=== PATIENT | male | born 1930 | race Caucasian/White ===

== ENCOUNTER → 2017-05-15 | Outpatient (CLI) | payer OTHER ==
[~2017-05-15] MED LIST: ALLOPURINOL 30300 M1; ASPIRIN EC81 M1; CALCIUM OYSTER500 MG; CARVEDILOL25 MG; COUMADIN 2 MG TA2 M1; CRESTOR20 MG; FIBER1 GM; FISHOIL; LISINOPRIL20 MG; VITAMIN D400 UNI1
== END ==
LOC: HYPER 07:06
DX: L89.312 Pressure ulcer of right buttock, stage 2 (principal); I48.1 Persistent atrial fibrillation; E78.00 Pure hypercholesterolemia, unspecified; G47.33 Obstructive sleep apnea (adult) (pediatric); M10.9 Gout, unspecified; I10 Essential (primary) hypertension; I25.10 Atherosclerotic heart disease of native coronary artery without angina pectoris; K21.9 Gastro-esophageal reflux disease without esophagitis; J44.9 Chronic obstructive pulmonary disease, unspecified; Z87.891 Personal history of nicotine dependence; Z87.01 Personal history of pneumonia (recurrent); Z86.718 Personal history of other venous thrombosis and embolism; Z86.19 Personal history of other infectious and parasitic diseases

== ENCOUNTER → 2017-05-24 | Outpatient (CLI) | payer OTHER | LOC: HYPER 07:12 | DX: L02.31 Cutaneous abscess of buttock (principal); I48.1 Persistent atrial fibrillation; E78.00 Pure hypercholesterolemia, unspecified; G47.33 Obstructive sleep apnea (adult) (pediatric); M10.9 Gout, unspecified; I10 Essential (primary) hypertension; I25.10 Atherosclerotic heart disease of native coronary artery without angina pectoris; K21.9 Gastro-esophageal reflux disease without esophagitis; J44.9 Chronic obstructive pulmonary disease, unspecified; Z87.891 Personal history of nicotine dependence; Z86.19 Personal history of other infectious and parasitic diseases; Z87.01 Personal history of pneumonia (recurrent); Z86.718 Personal history of other venous thrombosis and embolism ==

== ENCOUNTER 2019-06-28 21:16 | Inpatient (IN) | payer OTHER ==
[~2019-06-28] VITALS: Ht 152.4 cm; Wt 57.5 kg
[2019-06-28 21:16] VITALS: BP 149/95
[2019-06-28 21:39] LABS: ABSOLUTE NEUTROPHILS 10.5 thou/uL (1.4-8.2); BASOPHILS 0.4 % (0.0-2.0); EOSINOPHILS 0.4 % (0.0-3.0); HEMOGLOBIN 14.1 gm/dL (14.0-18.0); LYMPHOCYTES 6.5 % (24.0-44.0); MCH 32.2 pg (26.0-34.0); MCHC 32.1 g/dL (28.0-37.0); MCV 100.2 fL (80.0-100.0); MONOCYTES 8.1 % (1.0-8.0); PLATELET COUNT 170 thou/uL (150-400); POLYS 84.6 % (36.0-66.0); RBC 4.39 mil/uL (4.50-6.00); RDW 14.6 % (10.5-14.5); WBC 12.5 thou/uL (4.0-11.0)
[2019-06-28 21:44] LABS: CALCIUM 9.5 mg/dL (8.5-10.1); CREATININE 1.4 mg/dL (0.7-1.3); POTASSIUM 3.8 mmol/L (3.5-5.1)
[2019-06-28 21:49] LABS: ALBUMIN 3.1 g/dL (3.4-5.0); TOTAL BILIRUBIN 0.7 mg/dL (<0.1-1.0); TOTAL PROTEIN 7.3 g/dL (6.4-8.2)
[2019-06-28 21:51] LABS: APTT 41.8 Seconds (24.5-32.8); PROTIME 54.6 Seconds (9.3-11.4)
[2019-06-28 21:53] LABS: INR 5.3
[2019-06-28] MEDS ORDERED: XALATAN2.5 M1 OPHTHALMIC (22:14)
[2019-06-28 23:24] VITALS: BP 149/95
[2019-06-29] VITALS (13 sets, daily range): BP systolic 97–145; BP diastolic 57–99
[2019-06-29 01:35] LABS: HEMATOCRIT 41.3 % (42.0-52.0)
[2019-06-29 04:11] LABS: INR 2.2; PROTIME 23.3 Seconds (9.3-11.4)
[2019-06-29 06:51] LABS: CALCIUM 9.2 mg/dL (8.5-10.1); CREATININE 1.1 mg/dL (0.7-1.3); POTASSIUM 3.2 mmol/L (3.5-5.1)
--- NOTE | 2019-06-29 06:57 | NUR ---
PT WAS AN ER ADMIT. PT IS ADMITTED WITH ACTIVE RECTAL BLEEDING AND IS ASYMPOTMATIC. SPOUSE WAS AT BEDSIDE. PT IS ALERT BUT CONFUSED AND FORGETFUL. NO SIGN OF DISTRESS NOTED IN PT. ADMISSION ASSESSMENT AND EDUCATION COMPLETED VIA SPOUSE, PATIENT CONTINUES TO HAVE BRIGHT RED BLOOD WITH CLOTS PRESENT. H&H STABLE. PATIENT IS NPO FOR A COLONOSCOPY THIS AM. VITAL SIGNS STABLE. DENIES ANY PAIN, DENIES ANY FURTHER NEEDS AT THIS TIME
--- NOTE | 2019-06-29 11:23 | NUR ---
transfered to ICU close monitoring pt is very anxious cardiac history and issues going on. Reasured pt he will be taken care of in the ICU. And any cardiac pain he is to inoform the nurse. denies any chest pain currently family at bedside for support at this time. remains on nitro and heparin drip at this time for manangement. Discuss plan of care with pt at this time per nursing. Will continue to assess and monitor per nursing
[2019-06-29 15:41] LABS: URINE BILIRUBIN NEGATIVE (Negative); URINE BLOOD 3+ (Negative); URINE CLARITY CLEAR; URINE COLOR YELLOW; URINE GLUCOSE-RANDOM* NEGATIVE (Negative); URINE KETONES NEGATIVE (Negative); URINE LEUKOCYTES-REFLEX TRACE (Negative); URINE NITRITE-REFLEX NEGATIVE (Negative); URINE PROTEIN (DIPSTICK) NEGATIVE (Negative); URINE SPECIFIC GRAVITY 1.025 (1.005-1.035); URINE UROBILINOGEN 0.2 E.U./dl (0.2-1.0)
[2019-06-29 15:53] LABS: BACTERIA-REFLEX 1-9 Few /HPF (None Seen); CRYSTALS None Seen /LPF (None Seen); HYALINE CASTS 4-10 Moderate /LPF (None Seen); MUCUS >6 Heavy strn/LPF (None Seen); SQUAMOUS 0-3 Few /LPF (0-3); URINE RBC >20 Many /HPF (0-2); URINE WBC-REFLEX 6-15 Few /HPF (0-5)
[2019-06-29 16:49] LABS: HEMATOCRIT 32.2 % (42.0-52.0)
[2019-06-29 16:50] LABS: HEMOGLOBIN 10.4 gm/dL (14.0-18.0)
--- NOTE | 2019-06-29 20:00 | NUR ---
PT HAD SECOND MAROON BM [id number]. BM HAD BLOOD CLOTS. DR. RIZO CALLED AND NOTIFIED ABOUT THE BM. HE WANTED HH CHECKED NOW AND AT 0400 IN AM. PT PICKING ON THINGS. ORDER FOR MELATONIN GIVEN.
[2019-06-29 21:03] LABS: HEMATOCRIT 31.8 % (42.0-52.0); HEMOGLOBIN 10.1 gm/dL (14.0-18.0)
[2019-06-30] VITALS (14 sets, daily range): BP systolic 103–165; BP diastolic 58–100
--- NOTE | 2019-06-30 00:12 | NUR ---
PT INCREASINGLY AGITATED AND CONFUSED. PT REMOVED HIS IV BY SELF. PT TOOK HIS GOWN, EKG LEADS AND BP CUFF OFF. PT WAS GIVEN 2 GM MELATONIN TO HELP SLEEP BUT DID NOT HELP PT. ORDER FOR BILATERAL MITTEN WAS GIVEN. PT MORE AGITATED AND DEMANDING TO TAKE IT OFF. PT ONLY ORIENTED TO SELF WHEN ASKED WHERE HE WAS. PT DELIRIOUS AND SEEING HIS . ORDER FOR BILATERAL SOFT WRISTS RESTRAINT GIVEN.
--- NOTE | 2019-06-30 00:20 | NUR ---
PT REMOVED HIS IV BY SELF. PT TOOK HIS GOWN, EKG PATCH AND BP CUFF OFF. PT REPEATEDLY TRYING TO GET OUT OF BED. PT ONLY ORIENTED TO SELF AND WHEN ASKED WHERE HE WAS. PT ANSWERED HOME. PT DELIRIOUS AND SEEING HIS IN THE ROOM. PT INCREASINGLY AGITATED. PT GIVEN 2 MG MELATONIN GIVEN. IT DID NOT HELP PT. PT WAS PUT IN MITTEN. PT DEMANDING TO GET THE MITTEN OFF. ORDER FOR BILATERAL SOFT WRIST RESTRAINT AND HALDOL GIVEN.
[2019-06-30 04:40] LABS: ABSOLUTE NEUTROPHILS 8.5 thou/uL (1.4-8.2); BASOPHILS 0.3 % (0.0-2.0); EOSINOPHILS 0.6 % (0.0-3.0); HEMATOCRIT 26.9 % (42.0-52.0); HEMOGLOBIN 8.7 gm/dL (14.0-18.0); LYMPHOCYTES 11.5 % (24.0-44.0); MCH 32.6 pg (26.0-34.0); MCHC 32.5 g/dL (28.0-37.0); MCV 100.3 fL (80.0-100.0); MONOCYTES 6.4 % (1.0-8.0); PLATELET COUNT 122 thou/uL (150-400); POLYS 81.2 % (36.0-66.0); RBC 2.69 mil/uL (4.50-6.00); RDW 14.7 % (10.5-14.5); WBC 10.4 thou/uL (4.0-11.0)
[2019-06-30 04:55] LABS: INR 1.5; PROTIME 15.3 Seconds (9.3-11.4)
[2019-06-30 05:05] LABS: ALBUMIN 2.3 g/dL (3.4-5.0); CALCIUM 8.3 mg/dL (8.5-10.1); MAGNESIUM 1.9 mg/dL (1.8-2.4); PHOSPHORUS 2.7 mg/dL (2.5-4.9); POTASSIUM 3.3 mmol/L (3.5-5.1); TOTAL BILIRUBIN 0.6 mg/dL (<0.1-1.0); TOTAL PROTEIN 5.2 g/dL (6.4-8.2)
--- NOTE | 2019-06-30 11:58 | NUR ---
patient admits with rectal bleeding. he admits from home. he has hx of dementia and currently in restraints. Sp with at bedside. Patient was doing well until the past week. She reports 8 steps in home to bedroom. Patient ambulated without a walker but she was able to assist. She reports plan for patient to move to [facility] today to memory care assisted living. She reports she can no longer take care of him at home. She reports his confusion progressed in last week were he was up most of night. He would bang on wall looking for her and needing increase care. Patient has been at [facility] in past. DIscussed with likely needing ltc placement. Also discussed hospice and reviewed inpatient hospice house if they decide no more aggresive tx. At this time plan flexsig and tx. Patient in restraints not a candidate for skilled. 2 supportive children, dtr RN in [place] and son lives in [place]. [facility] following.
[2019-06-30 17:07] LABS: HEMATOCRIT 26.5 % (42.0-52.0); HEMOGLOBIN 8.6 gm/dL (14.0-18.0)
[2019-07-01 05:20] VITALS: BP 99/61
[2019-07-01 05:24] LABS: HEMATOCRIT 23.6 % (42.0-52.0); HEMOGLOBIN 7.6 gm/dL (14.0-18.0); RBC 2.36 mil/uL (4.50-6.00); RDW 14.4 % (10.5-14.5); WBC 12.8 thou/uL (4.0-11.0)
--- NOTE | 2019-07-01 06:09 | NUR ---
PT ALERT TO SELF WITH CONGRUENT, APPROPRIATE RESPONSES TO PROMPTS. PT IS MAX ASSIST WHILE ON BED REST. PT NOTED TO HAVE VOLUNTARY, UNCOORDINATED MOVEMENTS OF ALL EXTREMITIES. PT REPOSITIONED Q2HR. PT HAS NO REPORTS OR OBSERVATIONS OF PAIN, FLACC OF 0. BILATERAL SOFT WRIST RESTRAINTS CONTINUE TO BE INDICATED WRIST RESTRAINTS CONTINUE TO BE INDICATED PT CONTINUES TO ATTEMPT TO PULL OUT TUBING. TAP WATER ENEMAS ADMINISTERED X 2 ORDERED, PROCEDURE TOLERATED WELL. PT MOUTH NOTED DRY, MOUTH CARE PROVIDED. PT REMAINS NPO FOR PROCEDURE. ENCOURAGED TO NOTIFY STAFF FOR ALL NEEDS. BED ALARMS ON, BED IN LOWEST POSITION, CALL LIGHT WITHIN REACH. WILL CONTINUE TO MONITOR.
[2019-07-01 08:00] VITALS: BP 113/54
[2019-07-01] MEDS ORDERED: CARDIZEM30 MG PO (10:11)
--- NOTE | 2019-07-01 16:02 | NUR ---
SPOUSE WAS AGREEABLE WITH REFERRAL BEING SENT TO HOSPICE HOUSE FOR REVIEW FOR POSSIBLE ADMISSION. REFERRAL SENT. NURSE MAK TO DO ON SITE EVAL. SHE INDICATED THAT AT THIS TIME PT DOESN'T MEET CRITERIA FOR ADMISSION. SHE INDICATED THAT PT WOULD NEED TO BE OUT OF PHYSICAL RESTRAINTS FOR 24HRS PRIOR TO ADMISSION. SHE INDICATED THAT SHE WOULD CALL REPORT INTO HOUSE AND THAT IT MIGHT BE APPROPRIATE FOR THEM TO CHECK ON PT DAILY TO SEE AT TO HOW HE PROGRESSES. SPOUSE IS AWARE. CM SPOKE WITH NURSE TO SEE IF THEY MIGHT BE ABLE TO TAKE OFF RESTRAINTS. CM TO FOLLOW INDICATED WITH DC PLANNING.
--- NOTE | 2019-07-01 16:40 | NUR ---
RECEIVED CALL FROM PT'S DTR EFE VERA RN THAT LIVES IN [place] REQUESTING THE DR GIVE HER A CALL TO DISCUSS HIS CARE AND SHE DOES NOT WANT TO CONSIDER HOSPICE AT THIS TIME. SHE WANTS HIM TO RECEIVE NUTRITION LIKE TPN OR SOMETHING. FAMILY IS FLYING IN ON SUNDAY. DTR SAYS SHE JUST S/W HER DAD ON SUN IN THE ICU & NEEDS TO SEE HIM FIRST BEFORE CONSIDERING HOSPICE. EFE [phone].
[2019-07-01 17:01] LABS: HEMATOCRIT 23.8 % (42.0-52.0); HEMOGLOBIN 7.7 gm/dL (14.0-18.0)
[2019-07-01 17:08] VITALS: BP 111/50
--- NOTE | 2019-07-01 19:49 | NUR ---
ASSUMED CARE OF PATIENT AT 0715, PATIENT EYES REMAINED CLOSED, BUT RESPONDS MINIMALLY. PATIENT WAS NPO THIS AM, BUT DIET ORDER IN FROM DR ANG FOR BREAKFAST TARY. PATIENT DIDN'T EAT BREAKFAST TRAY. ONLY HAD 10% OF LUNCH AND 10% OF DINNER, SUPPLEMENT ONLY 10% NEW ORDER FOR FENTANYLL PATCH 12MCG APPLIED TO RIGHT CHEST AREA. PATIENT IN RESTRAINTS MICKIE. SOFT WRIST. Q2HR CHECK IN COMPUTER, SKIN ASSESSED Q2HRS, PATIENT REPOSITIONED. AT BEDSIDE TODAY. ORDER IN PER DR TROY FOR HOSPICE EVAL. HOSPICE EVAL DONE, PATIENT HAS BE OUT OF RESTRAINTS X 24HRS. SPOKE WITH DR TROY IN REGARD TO TPN PER FAMILY REQUEST, HE STATES SODIUM LEVEL NOT GOOD, INCREASE IV FLUIDS TO 100CC/HR. IV TO LEFT FOREARM WITH D5NS AT 80CC INCREASED TO 100CC/HR AT END OF THE SHIFT. WILL CONTINUE TO MONITOR.
[2019-07-01 21:51] VITALS: BP 125/56
--- NOTE | 2019-07-02 03:15 | NUR ---
Assumed pt care at 1900. Pt alert to self,confused but able to make needs known. Pt fidgiting with vizcaino causing some bleeding even with the restraints in place. Restraints reapplied. Pt yelling out loud as well,medicated with Haldol with relief reported at this time. Vizcaino patent draining dark yellow urine. Pt had a medium soft BM earlier this shift,pericare done and moisture barrier applied. IV reinserted on LUE as the other one was infiltrated due to the restraints being moved a lot by patient. Fall precautions in place. Frequent monitoring done on pt. Pts daughter called at HS, updated on pt and all questions answered stated she plans to be here Sunday and would like pt to be here until then CM aware. Will continue to monitor pt.
[2019-07-02 05:35] LABS: HEMATOCRIT 22.7 % (42.0-52.0); HEMOGLOBIN 7.5 gm/dL (14.0-18.0)
[2019-07-02 06:08] VITALS: BP 112/47
[2019-07-02 08:30] VITALS: BP 125/53
[2019-07-02 09:33] LABS: CALCIUM 7.8 mg/dL (8.5-10.1); CREATININE 0.8 mg/dL (0.7-1.3); POTASSIUM 3.4 mmol/L (3.5-5.1)
--- NOTE | 2019-07-02 15:48 | NUR ---
PT SLEEPY TODAY UNABLE TO EAT THIS AM W/O CHOKING. WHEN RESTRAINT WERE REMOVED FOR BREAKFAST PT STARTED PULLING AT GOINS. PT WAS PLACED ON PPN, AND MADE NPO. SPOUSE IS AT THE BEDSIDE AT THIS TIME. WILL CONT POC.
[2019-07-02 17:07] LABS: HEMATOCRIT 24.8 % (42.0-52.0)
[2019-07-02 17:55] VITALS: BP 108/54
[2019-07-02 19:47] VITALS: BP 139/78
--- NOTE | 2019-07-03 05:02 | NUR ---
Assumed pt care at 1900. Alert to self with confusion,able to answer yes or No questions. Denied pain on assessment. VSS. Thompson in place with adequate output dark yellow urine,incontinent of BM. Restraints in place,pt continues to attempt pulling medical equipment when released. Resting quietly at this time,no distress noted oxygen on at 2L/NC. Fall precautions in place,will continue to monitor pt.
[2019-07-03 05:09] VITALS: BP 136/75
[2019-07-03 08:20] VITALS: BP 131/71
--- NOTE | 2019-07-03 08:21 | NUR ---
Recommend discontinue D5 IVF and increase clinimix PPN to 100ml/hr with 250ml 20% lipids MWF
[2019-07-03 16:28] VITALS: BP 115/60
--- NOTE | 2019-07-03 16:41 | NUR ---
PT A&O TO SELF. IV INTACT IN R UA INFUSING PPN/CONT. FLUIDS W//O COMPS. PT IS MORE ARROUSABLE TODAY, LESS LETHARGIC. SOFT WRIST RESTRAINTS REMAIN IN PLACE DUE TO PT PULLING AT LINES AND TUBES. PT DID STAND UP WITH PT TODAY. REMAIN NPO. SPOUSE AT THE BEDSIDE OFF AND ON THRUOGHOUT THE DAY.WILL CONT. POC.
[2019-07-03 17:31] LABS: HEMATOCRIT 26.1 % (42.0-52.0); HEMOGLOBIN 8.5 gm/dL (14.0-18.0)
--- NOTE | 2019-07-03 18:35 | NUR ---
GOINS CATH REMOVED WITH 10ML STREILE WATER BALOON. PT TOLERATED WELL.
[2019-07-03 20:30] VITALS: BP 102/64
--- NOTE | 2019-07-04 04:00 | NUR ---
ASSESSMENT COMPLETED. PT IS ALERT TO SELF.ANSWERS SIMPLE QUESTIONS. Q2HR TURN PROVIDED. INCONTINENT OF BLADDER SEVERAL TIMES. ON /. DENIES PAIN. CONTINUES TO BE ON MICKIE WRIST RESTRAINTS WITH CURRENT DOCTORS ORDERS IN COMPUTER.PT IS NPO.IVF AND PPN INFUSING. AFEBRILE.HAD A LARGE DARK BROWN BM. NO FURTHER CONCERNS AT THIS TIME.
[2019-07-04 05:05] VITALS: BP 102/64
[2019-07-04 05:21] LABS: HEMATOCRIT 22.8 % (42.0-52.0); HEMOGLOBIN 7.6 gm/dL (14.0-18.0); MCH 32.9 pg (26.0-34.0); MCHC 33.5 g/dL (28.0-37.0); MCV 98.2 fL (80.0-100.0); RBC 2.32 mil/uL (4.50-6.00); RDW 14.2 % (10.5-14.5)
[2019-07-04 05:34] LABS: ALBUMIN 1.9 g/dL (3.4-5.0); CREATININE 0.7 mg/dL (0.7-1.3); MAGNESIUM 1.7 mg/dL (1.8-2.4); POTASSIUM 3.2 mmol/L (3.5-5.1); TOTAL BILIRUBIN 0.4 mg/dL (<0.1-1.0); TOTAL PROTEIN 5.3 g/dL (6.4-8.2)
[2019-07-04 08:20] VITALS: BP 115/64
--- NOTE | 2019-07-04 10:07 | NUR ---
WOUND CARE FOLLOW UP; WE HAVE BEEN FOLLOWING THIS PATIENT RE; HIGH RISK STATUS. THE PATIENT IS DOING WELL. ALL PRESSURE AREAS ARE BEING OFFLOADED EFFECTIVELY. PRAFO BOOTS, WEDGES AND PILLOW AND A LOW AIRLOSS BED PUMP ARE BEING EMPLOYED. RECOMMEDNATION; CONTINUE TO FOLLOW THIS PATIENT THROUGH DISCHARGE. DISCUSSED WITH [facility]I
[2019-07-04 11:28] LABS: TSH 2.573 uIU/mL (0.358-3.740)
--- NOTE | 2019-07-04 12:24 | NUR ---
FAXED REFERRAL TO [facility] RECEIVED CONFIRMATION AND SPOKE WITH DIEGO IN ADM SHE WILL REVIEW. ANTICIPATE DC SUNDAY.
[2019-07-04 17:05] LABS: HEMATOCRIT 25.8 % (42.0-52.0); HEMOGLOBIN 8.5 gm/dL (14.0-18.0)
--- NOTE | 2019-07-04 19:49 | NUR ---
Assumed care of pt at 0700. Pt a&ox1. Non-violent restraints on. IVF and PPN infusing. Diet advanced to pureed, honey thick. Incontinent of b&b. Family at bedside. Appointment set with Dr. Calvetr at 0900 tomorrow (07/05).
[2019-07-04 21:10] VITALS: BP 136/77
[2019-07-05 03:10] VITALS: BP 130/68
[2019-07-05 05:24] LABS: ALBUMIN 2.2 g/dL (3.4-5.0); CALCIUM 8.3 mg/dL (8.5-10.1); CREATININE 0.7 mg/dL (0.7-1.3); MAGNESIUM 1.8 mg/dL (1.8-2.4); TOTAL BILIRUBIN 0.4 mg/dL (<0.1-1.0)
--- NOTE | 2019-07-05 05:51 | NUR ---
ASSUMED PT CARE 07/04/19 APPROX 191. PT IS ALERT TO SELF AND CONFUSED. DAUGHTER WAS VISITING PT IN ROOM FOR ABOUT AN HOUR AND A HALF. PT IS IN SOFT RESTRAINTS. I CALLED NURSE PRACTITIONER SPECIMEN TECHNICIAN TO RENEW THE ORDER FOR THE RESTRAINTS. GAVE PT BLOOD THINNER BUT HE REFUSED ORAL MEDICATION. PT STATES THAT HE IS NOT IN PAIN BUT DOES NOT FEEL GOOD. PT IS INCONTINENT BOWEL & BLADDER. PT TAKES OFF GOWN AND COVERS CONSTANTLY. DID TWO FULL BED CHANGES. WE PERFORMED IRIS CARE ON PT. RELEASED THE RESTRAINTS Q2 HRS. PT STILL TRIES TO PULL IV AND NASAL CANULA. PT CALLS OUT WIFES NAME. WILL CONTINUE TO MONITOR PT.
--- NOTE | 2019-07-05 06:28 | NUR ---
THIS NURSE AGREES WITH THE NOTE ON THIS PATIENT.
[2019-07-05 08:37] VITALS: BP 133/73
[2019-07-05 17:26] VITALS: BP 116/69
[2019-07-05 21:10] VITALS: BP 107/51
--- NOTE | 2019-07-05 21:20 | NUR ---
PATIENTIS ORIENTED TO SELF AND SPOUSE AND DAUGHTER AT BEDSIDE FOR MOST OF THE DAY. DR. TROY AT BEDSIDE THIS AM AND SPOKE WITH FAMILY ABOUT DC TO SNF TO CONTINUE TO GET STRONGER. POSSIBLY DC ON SUNDAY. SPEECH SIGN AT INDICATES THICKENED LIQUIDS AND CRUSH MEDS.
--- NOTE | 2019-07-06 03:00 | NUR ---
ASSUMED CARE OF PT @1900 PT ASSESSED AT START OF SHIFT A&0X1 WITH HX OF ALZHEIMERS. PT ON BEDREST TURNS SELF IN BED. PT INCONTINENT OF BOWEL AND BLADDER IRIS CARE GIVEN. TAKES MEDS CRUSHED WITH THICK LIQUID ASPIRATION PROTOCOL MAINTAINED. PT TAKEN OFF RESTRAINT DURING THE DAY. IV INTACT IN LFT UPPER ARM FLUIDS AND FEEDING D/C. PT O2 SAT STABLE ON ROOM AIR. FREQUENT ROUNDING DONE AND ROOM INFRONT OF NURSES STATION WILL CONT WITH POC TILL EOS.
[2019-07-06 04:30] VITALS: BP 127/56
[2019-07-06 08:13] VITALS: BP 137/71
--- NOTE | 2019-07-06 16:12 | NUR ---
Alert and oriented to self, kept talking to self; with family help, the patient finished 70% of breakfast and 40% of lunch. Daughter asked the staff to pass it on that the cough the patient had during eating was normal, not a sign of aspiriation.VSS, afebrile. family showed concern about the patient's s;eep quality.
[2019-07-06 16:19] VITALS: BP 145/74
[2019-07-07 03:35] VITALS: BP 114/70
[2019-07-07 03:46] LABS: HEMATOCRIT 25.7 % (42.0-52.0); HEMOGLOBIN 8.4 gm/dL (14.0-18.0); MCH 32.1 pg (26.0-34.0); MCHC 32.8 g/dL (28.0-37.0); MCV 97.9 fL (80.0-100.0); RBC 2.63 mil/uL (4.50-6.00); RDW 14.3 % (10.5-14.5); WBC 8.6 thou/uL (4.0-11.0)
--- NOTE | 2019-07-07 04:29 | NUR ---
PT ASSESSED AT START OF SHIFT ALERT TO SELF. MEDS CRUSHED AND GIVEN WITH THICKNED LIQUIDS. PT INCONTINET OF BOWEL AND BLADDER. SLEPT ALL THROUGH THE NIGHT. GIVEN PO THICK FLUID FRQ AND REPOSITIONED. HOURLY ROUNDING DONE AND WILL CONT WITH POC TILL EOS.
[2019-07-07 08:04] VITALS: BP 131/84
[2019-07-07] MEDS ORDERED: MIRALAX17 GM PO (08:51)
[2019-07-07] MEDS ORDERED: ASPIRIN325 PO (08:51)
[2019-07-07] MEDS ORDERED: LATANOPROST2.5 ML OPHTHALMIC (08:51)
[2019-07-07] MEDS ORDERED: REMERON15 MG PO (08:51)
--- NOTE | 2019-07-07 13:09 | NUR ---
WOUND CARE FOLLOW UP; ASSESSMENT COMPLETED. THE LOW AIR LOSS PUMP IS CONNECTED AND FUNTIONING THE PATIENT HAS NO S/S OF PRESSURE INJURY AT THIS TIME. THE PATIENTS ALBUMIN IS DOWN TO 2.2. I WILL CONTINUE TO FOLLOW THIS AT RISK PATIENT.
--- NOTE | 2019-07-07 13:57 | NUR ---
PT CARE ASSUMED 0700. PT SLEEPING MOST OF THE DAY. PT. EVALUATED FOR HOSPICE HOUSE TODAY AND DID NOT QUALIFY.. GUN STOCKER IS WORKING ON PLACEMENT FOR A FACILITY THAT HAS OPENINGS AND CAN ACCOMODATE HIM. PT NOT IMPULSIVE. INCONTINENT TO BOWEL AND BLASSER. CALL LIGHT IN REACH. AND DAUGHTER IN THE ROOM. PT WORKED WITH PT TODAY. PUREED DIET. PT DID ONLY ATE 5% OF MEAL AND REFUSED SUPLEMENT. BM TODAY. IV SALINE LOCKED. FLUSHES WITH BLOOD RETURN. PT. HAS TROUBLE SWALLOWING FLUIDS. PT. IS ON HONEY THICK LIQUIDS AND TAKES HIS MEDS CRUSHED.
--- NOTE | 2019-07-07 16:26 | NUR ---
S/W DTR AND IN ROOM THIS AM TO INFORM THEM THAT [facility] IS FULL. THEY [facility], [facility], [facility], [facility], [facility] AND [employer] [facility]. REFERALS WERE FAXED TO ALL FACILITIES BY [employer] UNDERWRITER. RECEIVED [facility] THAT [facility] IS FULL, [facility] DOES NOT THINK HE HAS A SKILLED NEED, [facility] DENIED THINKS HE NEEDS [facility] AND [facility] IS FULL. FAMILY IS NOW NOT INTERESTED IN [employer], THEIR STAFF CAME OVER AND DID AN ON-SITE EVAL. [facility] SENT OVER LIAS[facility] TO DO ON-SITE AND THEY ARE ABLE TO ACCEPT PT. NOTIFIED PT'S AND SHE AND DTR WILL TOUR THIS AFTERNOON. ALSO S/W PETER AT [facility] AGAIN AND THEY WILL RE-LOOK AT PT TOMORROW AM. PT WAS ABLE TO WALK A FEW STEPS WITH THERAPY TODAY. AWARE OF THIS AND WILL INFORM DTR ALSO.
[2019-07-07 16:45] VITALS: BP 113/66
[2019-07-07 20:00] VITALS: BP 136/83
[2019-07-08 04:03] VITALS: BP 139/89
--- NOTE | 2019-07-08 05:39 | NUR ---
PT ASSESSED AT START OF SHIFT SLEEPING BUT RESPONDS TO COMMAND. ON ARRIVAL FAMILY PRESENT IN ROOM DURING REPORT STATES NOT TO GIVEN EVENING REMRON. EVEING MEDS GIVEN CRUSHED IN THICKNED LIQUID PT CHANTELL IT WELL. PT MORE AWAKE NOW @2100 AND WANTS SOMETHING TO EAT PUREED DINNER TRAY GIVEN AND PT ATE 40% OF FOOD. PT INCONTINENT OF BLOWER AND BLADDER. HAD 1 BM THIS SHIFT. PT TURNS SELF AND NURSE ASSITS FREQUENTLY. HOURLY ROUNDING DONE AND WILL CONT WITH POC TILL EOS
[2019-07-08 07:59] VITALS: BP 142/73
--- NOTE | 2019-07-08 16:10 | NUR ---
S/W HEMSTITCHING MACHINE OPERATOR FROM [facility] [employer] THIS AM AND HER QUESTIONS WERE ANSWERED AND THEY ARE ABLE TO ACCEPT PT. TRIED TO REACH PT'S ON HER HOME NUMBER, CELL PHONE AND ON DTR EFE'S CELL PHONE. MESSAGES WERE LEFT ON ALL 3 PHONES. THEY EWERE SUPPOSED TO TOUR [facility] AND GIVE US AN ANSWER ON THEIR FACILITY CHOICE THIS AM.
[2019-07-08 16:14] VITALS: BP 144/60
--- NOTE | 2019-07-08 16:52 | NUR ---
UPDATED THEREAPY BNOTES SENT TO [facility] THAT IS WHERE PT'S FAMILY WANT PT TO GO. THEY ARE TO DO ONSIGHT IN THE AM. CM TO FOLLOW INDICATED WITH DC PLANNING.
--- NOTE | 2019-07-08 17:01 | NUR ---
FAXED TODAY'S PT NOTES TO [facility] SPOKE WITH RAMOS IN ADM SHE RECEIVED THERAPY NOTES AND WILL DO A BEDSIDE EVAL TOMORROW 07/09.
--- NOTE | 2019-07-08 18:54 | NUR ---
PT. CARE ASSUMED 0700. PT CONFUSED TO SELF. BED LOCKED CALL LIGHT WITHIN REACH. PT. WORKED WITH PT. OT. WORKED WITH PT. TODAY. PT. AWAITING APPROVAL FOR PLACEMENT. POSSIBLE DISCHARGE TOMORROW. BM TODAY. Q2 TURNS. MEDS CRUSHED. IV L. UPPER ARM. PT. MORE ALERT THEN YESTERDAY. FAMILY WANTS SLEEPING MEDS HELD TONIGHT. PT SAT IN RECLINER MOST OF THE DAY. PT. HAD A BM IN THE BED SIDE COMMODE.
[2019-07-08 20:00] VITALS: BP 99/79
[2019-07-09 02:45] VITALS: BP 115/69
--- NOTE | 2019-07-09 06:21 | NUR ---
ASSESSMENT COMPLETED. PT IS ALERT TO SELF. STILL CONFUSED. MAX ASSIST X 2 FOR TRANSFERS. INCONTINENT OF BALDDER. SWALLOWS MEDS WELL. CRUSHED IN APPLE SAUCE.PT HAD A RESTFUL NIGHT. FALL PREC IN PLACE.
[2019-07-09 08:58] VITALS: BP 126/75
--- NOTE | 2019-07-09 15:39 | NUR ---
CM FOLLOWED UP WITH PT'S FAMILY AND INDICATED THAT [facility] COULD ACCEPT.. SPOUSE INDICATED THAT THEY HAD GONE AND TOURED A FEW MORE PLACES AND THAT THEY NOW WANTED A REFERRAL SENT TO [facility] FOR REVIEW WITH HOPE THAT PT COULD TRANSFER TO [facility] ONCE A BED OPENS UP NEXT WEEK. REFERRAL SENT [facility] IS ACCEPTING. PT'S FAMILY AWARE AND AGREEABLE WITH DISCHARGE TO [facility]. WHEELCHAIR VAN TRANSPORT ARRANGED FOR [phone]. CHART COPY ORDERD. ORDERS FAXED. REPORT TO BE CALLED TO . NO OTHER CM INTERVENTION INDICATED. CASE CLOSED.
== END 2019-07-09 16:59 | DRG 393 ==
LOC: ER 21:16 → 4S 06-29 00:03 → ICU 06-29 00:03 → 4S 06-30 19:01
PROVIDERS: Emergency Medicine Emergency Medical Services; Hospitalist; Internal Medicine Gastroenterology; Nurse Practitioner Acute Care; ADMIT Internal Medicine
PROC: 3E1H88Z Irrigation of Lower GI using Irrigating Substance, Via Natural or Artificial Opening Endoscopic (ICD-10-PCS; principal; 2019-06-30)
PROC: 0DJD8ZZ Inspection of Lower Intestinal Tract, Via Natural or Artificial Opening Endoscopic (ICD-10-PCS; principal; 2019-06-30)
DX: K62.6 Ulcer of anus and rectum (principal); E43 Unspecified severe protein-calorie malnutrition; E87.0 Hyperosmolality and hypernatremia; D68.9 Coagulation defect, unspecified; N17.9 Acute kidney failure, unspecified; N39.0 Urinary tract infection, site not specified; K56.41 Fecal impaction; G30.9 Alzheimer's disease, unspecified; F02.80 Dementia in other diseases classified elsewhere, unspecified severity, without behavioral disturbance, psychotic disturbance, mood disturbance, and anxiety; I48.91 Unspecified atrial fibrillation; N18.3 Chronic kidney disease, stage 3 (moderate); Z66 Do not resuscitate; E86.0 Dehydration; I25.10 Atherosclerotic heart disease of native coronary artery without angina pectoris; G47.33 Obstructive sleep apnea (adult) (pediatric); E87.6 Hypokalemia; R62.7 Adult failure to thrive; D64.9 Anemia, unspecified; R13.10 Dysphagia, unspecified; I12.9 Hypertensive chronic kidney disease with stage 1 through stage 4 chronic kidney disease, or unspecified chronic kidney disease; R41.0 Disorientation, unspecified; Z95.1 Presence of aortocoronary bypass graft; Z88.2 Allergy status to sulfonamides; Z88.1 Allergy status to other antibiotic agents; Z88.8 Allergy status to other drugs, medicaments and biological substances; Z68.24 Body mass index [BMI] 24.0-24.9, adult
CPT/HCPCS: 10078; 10102; 62110; 62900; 70005